=== PATIENT | male | born 1980 | race Caucasian/White ===

== ENCOUNTER 2019-04-29 09:27 | Outpatient (CLI) | payer MEDICARE, OTHER, SELFPAY ==
--- NOTE | ~2019-04-29 | XR_ITS ---
XR abdomen/kub 1V DATE: 04/29/2019 09:58 INDICATION: Abdominal pain. Renal stone. TECHNIQUE: AP projection, 2 views COMPARISON: None FINDINGS: An approximately 4 mm calcification overlies the distal right ureter: Distal right ureteral calcified stone is not excluded. No other urinary tract calcification is evident. Several pelvic calcified phleboliths are noted. The psoas shadows are intact. No visceromegaly is evident. The bowel gas pattern is unremarkable, wit hout evidence of obstruction. IMPRESSION: Possible 4 mm distal right ureteral calcified stone; recommend clinical correlation and p erhaps noncontrast CT abdomen pelvis examination for more definitive confirmation or exclusion of any urinary tract calculus Reviewed, dictated and finalized at [facility]. Reviewed, dictated and finalized at location A. IMPRESSION: Possible 4 mm distal right ureteral calcified stone; recommend clin ical correlation and perhaps noncontrast CT abdomen pelvis examination for more definitive confirmation or exclusion of any urinary tract calculus
== END 2019-04-29 09:28 | disposition home or self-care (01) ==
PROVIDERS: Visit Provider Nurse Practitioner Adult Health
DX: N20.0 Calculus of kidney (principal)
CPT/HCPCS: 74018

== ENCOUNTER 2019-04-29 12:38 | Day surgery (SDC) | payer MEDICARE, OTHER, SELFPAY ==
--- NOTE | ~2019-04-29 | XR_ITS ---
Pain management procedure TECHNIQUE: Fluoroscopy used during ureteral stone extraction performed by [Bernardo Larson MD ] on 04/29/2019. 8 seconds of fluoroscopy time. with 3 images captured. ]The is 0.114DAP for this proc edure was [XXXXDAP#.#[id number] [id number]. ] FINDINGS: Correlate with procedure note. IMPRESSION: Fluoroscopy used during ureteral stone extraction. Reviewed, dictated and finalized at location A.
[2019-04-29] MEDS: LACTATED RINGERS 1,000 ML 30 ML IV CONT (13:20)
[2019-04-29 13:40] VITALS: BP 136/91; PULSE 88; RESP 20; TEMP 36.9; O2SAT 99
--- NOTE | 2019-04-29 14:03 | WPDANESEPPF ---
Anes - Initial Pre Proc Eval Procedure: Operation Date: 04/29/19 15:00 Proposed Procedures p Cystoscopy, Right Ureteroscopy, Right Retrograde Pyelogram, Right Stone Extraction, Possible Right Stent Placement - Bernardo Larson MD s Possible Holmium Laser Procedure - Bernardo Larson MD Date/Time: 04/29/19 14:03 Surgeon: Bernardo Larson MD Pre Op Diagnosis: Rt Distal Ureteral Stone Patient Data Age: 38 Gender: M Height: Weight: 84.4 kg Last Vital Signs Temp 98.5 F 04/29/19 13:40 Pulse 88 04/29/19 13:40 Resp 20 04/29/19 13:40 BP 136/91 H 04/29/19 13:40 Pulse Ox 99 04/29/19 13:40 Allergies Allergy/AdvReac Type Severity Reaction Status Date / Time No Known Allergies Allergy Verified 03/13/19 13:48 Home Medications Medication Instructions Recorded Confirmed Type Valium 03/13/19 History ketorolac 10 mg PO Q6H PRN 5 Days #20 tablet 03/13/19 Rx tamsulosin [Flomax] 0.4 mg PO DAILY #5 cap 03/13/19 Rx sumatriptan succinate 6 mg/0.5 mL See Rx Instructions .ROUTE 03/23/19 Rx subcutaneous pen injector .COMPLEX #12 ml Patient hx anesthesia problems: none Family hx anesthesia problems: none [facility] Past Medical History Medical History (Updated 04/29/19 @ 13:29 by Celso Barajas MD) Kidney stones Migraine Social History Social History (Updated 04/29/19 @ 14:04 by Celso Barajas MD) Smoking status: Current every day smoker Additional smoking assessment comments: vapes at present; trtying to quit Alcohol intake: never Anes - Eval Final PreProcedure Day of Procedure 04/29/19 14:03 Patient weight: normal Heart: regular rate and rhythm Lungs: clear to auscultation Airway: Mallampati scale class II Neurological: alert and oriented Last oral intake: >/= 8 hours ASA classification: II Emergent: no Anesthetic plan: proceed Anesthesia type and monitoring: general LMA and standard monitoring Informed Consent: The patient's anesthetic plan and its attendant risks and benefits were discussed with the patient/family/POA. Questions were solicited and answers provided to the satisfaction of the patient/family/POA.
[2019-04-29] MEDS: ceFAZolin 2 GM/D5W 50 ML 2 GM/50 ML BAG IVPB (14:06)
[2019-04-29] MEDS: IBUPROFEN IV 800 MG/200 ML 800 MG/200 ML BAG 400 MG IVPB (14:06)
[2019-04-29] MEDS: LIDOCAINE HCL 2% GEL UROJET 10 ML PKG MUCOUS MEM (14:28)
--- NOTE | 2019-04-29 14:35 | PM.PROC ---
Procedure Note - Detailed Date of procedure: 04/29/19 Pre-op diagnosis: Rt Distal Ureteral Stone Post-op diagnosis: same Procedure performed: Cystoscopy, right ureteroscopy with stone extraction. Description of procedure: The patient was brought to the operative suite where he is prepped and draped in a routine sterile fashion while in the dorsal lithotomy position after the uneventful induction of a general LMA anesthetic. A 19F rigid cystoscope was placed in the bladder. There are no urethral strictures. His prostatic urethra measures, approximately, 1.5cm with no median lobe enlargement. The bladder mucosa was endoscopically normal without hyperemia or neoplasm. There was a single, orthotopic ureteral orifice bilaterally. A 0.035 glidewire was advanced into the right renal pelvis under fluoroscopy. The distal ureter was dilated with an 8F/10F ureteral dilator. Ureteroscopy was undertaken with a short, tapered, semi-rigid ureteroscope and the stone was extracted with ease using a [1.9F Avani] disposable stone basket. Due to the ease of this manipulation I opted not to place a ureteral stent. The patient's bladder was emptied and was taken to the recovery room having tolerated this procedure well. Anesthesia: GLMA Surgeon: Bernardo Larson MD Estimated blood loss (mL): 0 Drains: No Packing: No Pathology: yes (Right ureteral stone) Complications: No immediate complications Condition: stable Disposition: PACU
[2019-04-29 14:40] VITALS: BP 125/74; PULSE 92; RESP 19; TEMP 36.3; O2SAT 97
[2019-04-29 14:55] VITALS: BP 122/71; PULSE 83; RESP 12; O2SAT 97
[2019-04-29 15:10] VITALS: BP 123/82; PULSE 84; RESP 17; O2SAT 96
[2019-04-29 15:15] VITALS: BP 130/88; PULSE 78; RESP 16
[2019-04-29 15:45] VITALS: BP 123/80; PULSE 79; RESP 16
== END 2019-04-29 16:07 | disposition home or self-care (01) ==
PROVIDERS: PCP Emergency Medicine; Visit Provider Urology
PROC: (CPT 52352; principal; 2019-04-29 15:00)
DX: N20.1 Calculus of ureter (principal); F17.290 Nicotine dependence, other tobacco product, uncomplicated
CPT/HCPCS: 52352; 74018; 82365; 88300; A9270; C1758; C1769; J0690; J1741; J2250; J2704; J3010; J7120; Q9966

== ENCOUNTER 2020-01-23 13:17 | Emergency (ER) | payer MEDICARE, OTHER, SELFPAY ==
--- NOTE | ~2020-01-23 | XR_ITS ---
EXAMINATION: XR chest 1V portable DATE: 01/23/2020 14:12 INDICATION: Chest pain TECHNIQUE: frontal view of the chest was obtained. COMPARISON: Chest radiograph and CT dated 04/10/13 FINDINGS: The lungs are clear with no focal airspace opacities, pulmonary edema, pleural effusion or pneumothor ax. The cardiomediastinal silhouette is within normal limits for AP technique. Visualized bones and s oft tissues are unremarkable. IMPRESSION: 1. Normal chest radiograph. Reviewed, dictated and finalized at location A. INTEGRATION DEVELOPER IMPRESSION: 1. Normal chest radiograph.
[2020-01-23 13:19] VITALS: BP 130/90; PULSE 88; RESP 16; TEMP 36.2; O2SAT 98
--- NOTE | 2020-01-23 13:23 | ECG_ITS ---
Measurements Intervals [place] Rate: 81 P: 14 [place]: 145 QRS: 31 QRSD: 90 T: 37 QT: 361 QTc: 421 Interpretive Statements SINUS RHYTHM BORDERLINE ST-T WAVE ABNORMALITY- ANTERIOR LEADS BASELINE ARTIFACT- I, III, AVR, AVL, AVF, V1 BORDERLINE ECG Electronically Signed On 01-23-2020 14:12:36 PROGRAMS ASSISTANT by Anderson Perez D.O.
[2020-01-23 13:45] LABS: Basophils Absolute Auto 0.1 K/mm3 (0.0-0.1); Basophils Percent Auto 0.7 % (0.2-1.2); Eosinophils Absolute Auto 0.1 K/mm3 (0-0.3); Eosinophils Percent Auto 1.2 % (0-4.4); Hematocrit 46.6 % (42.0-52.0); Immature Granulocyte Absolute 0.06 K/mm3 (0.00-0.031); Immature Granulocyte Percent A 0.8 % (0-0.5); Lymphocytes Absolute Auto 2.86 K/mm3 (0.9-3.2); Lymphocytes Percent Auto 38.5 % (18.3-44.2); Mean Corpuscular HGB Conc 34.3 g/dl (32-36); Mean Corpuscular Hemoglobin 29.9 pg (26-34); Mean Corpuscular Volume 86.9 fl (80-100); Monocytes Absolute Auto 0.5 K/mm3 (0.1-0.6); Monocytes Percent Auto 6.1 % (2.6-8.5); Neutrophils Absolute Auto 3.9 K/mm3 (1.3-6.7); Neutrophils Percent Auto 52.7 % (45.5-73.1); Platelet Count Result 265 k/mm3 (150-375); Red Blood Count 5.36 M/mm3 (4.6-6.20); Red Cell Distribution Width 12.9 % (11.5-14.5); White Blood Count 7.4 K/mm3 (4.5-10.0)
[2020-01-23 14:14] LABS: INR 0.9; Prothrombin Time 12.3 Seconds (11.1-14.7)
[2020-01-23 14:15] LABS: Partial Thromboplastin Time 23.1 SECONDS (22.3-36.8)
[2020-01-23 14:22] LABS: Troponin I < 0.012 ng/mL (0.000-0.034)
[2020-01-23 14:41] LABS: D Dimer 0.27 ug/mL (<0.48)
--- NOTE | 2020-01-23 15:14 | PC.NURSE ---
Mo in lab running BNP now.
[2020-01-23 15:19] LABS: Anion Gap 10 mmol/L (8-16); Blood Urea Nitrogen 10 mg/dL (9-20); Calcium 9.6 mg/dL (8.4-10.2); Carbon Dioxide 23 mmol/L (22-30); Chloride 106 mmol/L (98-107); Estimated CRCL calculation 95 ml/min; Estimated Glomerular Filt Rate > 60; Glucose 96 mg/dL (75-110); Potassium 4.4 mmol/L (3.4-5.0); Sodium 139 mmol/L (137-145)
--- NOTE | 2020-01-23 15:21 | ED.GENADULT ---
HPI - General Adult General Chief complaint: Shortness of Breath/Dyspnea Stated complaint: SHORT OF BREATH Time Seen by Provider: 01/23/20 13:41 Source: RN notes reviewed History of Present Illness HPI narrative: Patient presents emergency department from home for shortness of breath. Patient states he has had shortness of breath for the past 48 hours. States nothing seems to make the symptoms better or worse. States that with that he has a feeling of cold in his midsternal chest that does not radiate. States that he has had no fevers or chills rhinorrhea cough abdominal pain nausea vomiting or any other symptoms Related Data Home Medications Medication Instructions Recorded Confirmed diazepam 5 mg tablet 5 mg PO DAILY PRN tablet 03/23/19 Allergies Allergy/AdvReac Type Severity Reaction Status Date / Time No Known Allergies Allergy Verified 05/19/19 09:53 Review of Systems Review of Systems: Narrative: Gen.: Denies fevers or chills Eyes: Denies eye pain or visual change ENT: Denies congestion Respiratory: See HPI CV: Reports feeling of cold in the chest denies palpitations GI: Denies abdominal pain nausea, emesis or diarrhea denies burning, urgency, frequency or hematuria Musculoskeletal: Denies back pain or muscle pain Neuro: Denies numbness, tingling, weakness or focal weakness Skin: Denies rash Except as documented, all other systems reviewed and negative [facility] Past Medical History Medical History (Updated 01/23/20 @ 17:03 by Lloyd Doss DO) Kidney stones Migraine Social History Social History Smoking status: Current every day smoker Additional smoking assessment comments: vapes at present; trtying to quit Alcohol intake: never Gender identity (if verbalized by the patient): Male Exam Narrative: Exam Narrative: APPEARANCE: No acute distress, nontoxic, resting in bed EYES: EOMI HEENT: Normocephalic, atraumatic, OMM RESPIRATORY: No respiratory distress Clear to auscultation bilaterally with no rhonchi wheezing or rales. CARDIOVASCULAR: Regular rate and rhythm without murmurs rubs or gallops. ABDOMINAL: Soft, nontender, nondistended, no rebound or guarding MUSCULOSKELETAl: Moves all extremities. No clubbing, cyanosis or edema. NEURO: Awake and alert. Following commands, speech normal, no focal deficits SKIN:: Warm, dry. No rashes lesions or abrasions PSYCHIATRIC: Normal affect/mood, Course Course Emergency Course: Called discussed with Dr. Benedict presentation and work-up. Reviewed EKGs with Dr. Benedict this time recommends repeat troponin and if negative may discharge follow-up as an outpatient Discussed with patient results of workup and diagnosis. Discussed need for follow-up with primary care, proper use of medication, and reasons to return to the emergency department. Patient understands and agrees to current treatment plan Vital Signs Vital signs: Vital Signs Temperature 97.2 F L 01/23/20 13:19 Pulse Rate 88 01/23/20 13:19 Respiratory Rate 16 01/23/20 13:19 Blood Pressure 130/90 01/23/20 13:19 Pulse Oximetry 98 01/23/20 13:19 Temperature 97.2 F L 01/23/20 13:19 Pulse Rate 88 01/23/20 13:19 Respiratory Rate 16 01/23/20 13:19 Blood Pressure 130/90 01/23/20 13:19 Pulse Oximetry 98 01/23/20 13:19 Medical Decision Making MDM Narrative Medical decision making narrative: Patient's EKGs and labs are without significant high risk changes. Cardiac risk factors reviewed. Patient is felt likely low risk for ACS and reasonable for further risk stratification testing as an outpatient. Pain was not sudden or maximal in onset without tearing or ripping quality. No other signs of symptoms suggest aortic dissection. A low-risk Wells criteria is noted, PE is felt to be unlikely. No pneumonia seen on evaluation today. Patient is felt to be a reasonable candidate for continued evaluation as an outpa
[2020-01-23] MEDS: ALBUTEROL SULFATE (*SP) AEROSOL 1 PUFF 2 PUFF INHALATION (15:41)
[2020-01-23 16:54] LABS: Troponin I < 0.012 ng/mL (0.000-0.034)
[2020-01-23 17:30] VITALS: BP 154/78; PULSE 72; RESP 16; O2SAT 99
[2020-01-24 18:52] LABS: SARS-CoV-2 RNA PCR Negative
== END 2020-01-23 17:31 | disposition home or self-care (01) ==
PROVIDERS: Emergency Provider Emergency Medicine; PCP Emergency Medicine
DX: R06.00 Dyspnea, unspecified (principal); Z20.828 Contact with and (suspected) exposure to other viral communicable diseases; F17.200 Nicotine dependence, unspecified, uncomplicated
CPT/HCPCS: 36415; 71045; 80048; 84484; 85025; 85380; 85610; 85730; 87635; 93005; 94640; 99284; A9270; C9803; U0003

== ENCOUNTER 2020-08-15 10:42 | Outpatient (CLI) | payer MEDICARE, OTHER, SELFPAY ==
--- NOTE | ~2020-08-15 | XR_ITS ---
EXAMINATION: XR chest 2V DATE: 08/15/2020 10:58 INDICATION: Chest tightness and shortness of breath TECHNIQUE: PA and lateral views of the chest are obtained. COMPARISON: 01/23/2020 FINDINGS: The lungs are free of acute opacities. There is no pleural effusion or pneumothorax. The ca rdiomediastinal silhouette is normal. The visualized bones and soft tissues are unremarkable. IMPRESSION: 1. No acute cardiopulmonary abnormality. Reviewed, dictated and finalized at location B.
== END 2020-08-15 10:43 | disposition home or self-care (01) ==
PROVIDERS: PCP Emergency Medicine; Visit Provider Emergency Medicine
DX: R07.89 Other chest pain (principal); R06.02 Shortness of breath
CPT/HCPCS: 71046

== ENCOUNTER 2020-08-22 14:50 | Outpatient (CLI) | payer MEDICARE, OTHER, SELFPAY ==
--- NOTE | ~2020-08-22 | CT_ITS ---
EXAMINATION: CT abdomen pelvis wo con DATE: 08/22/2020 15:15 INDICATION: Right abdominal and flank pain. Generalized abdominal pain. TECHNIQUE: Computed tomography (CT) of the abdomen and pelvis was performed without intravenous contr ast. Automated exposure control and iterative reconstruction technique were employed. Exam dose: 642 .22 mGy-cm total exam DLP. COMPARISON: 03/13/[address] abdomen pelvis FINDINGS: The lung bases are clear. Normal heart size. No pericardial or pleural effusion. Areas of low-attenuation within the gallbladder lumen suggest cholelithiasis. The gallbladder wall do es not appear unusually thickened and no pericholecystic fluid or fat stranding is evident. Consider gallbladder ultrasound examination. No bile duct or pancreatic duct dilatation. No hepatic or pancreatic space-occupying mass lesion is detected. Normal splenic size. Normal morphology of the adrenal glands. No renal mass lesion is detected. Pinpoint nonobstructing upper pole right renal calculus. No urinary tract calculus or hydroureteronep hrosis is noted otherwise. Normal caliber of the abdominal aorta. No intraperitoneal or retroperitoneal or pelvic mass lesion or adenopathy or ascites. The urinary bladder and prostate gland are unremarkable. No bowel obstruction, bowel wall thickening, pneumatosis or intraperitoneal free air. Technique is not visualized but there is no evidence of inflammatory change in the pericecal area IMPRESSION: Pinpoint nonobstructing upper pole right renal calculus; no obstructing urinary tract ca lculus or hydroureteronephrosis Suggestion of cholelithiasis; consider gallbladder ultrasound correlation. Reviewed, dictated and finalized at Location [facility]. Reviewed, dictated and finalized at location A. IMPRESSION: Pinpoint nonobstructing upper pole right renal calculus; no obstru cting urinary tract calculus or hydroureteronephrosis Suggestion of cholelithiasis; consider gallbladder ultrasound correlation.
== END 2020-08-22 14:51 | disposition home or self-care (01) ==
LOC: ANHIMG 14:54
PROVIDERS: PCP Emergency Medicine; Visit Provider Emergency Medicine
DX: R10.84 Generalized abdominal pain (principal); N20.0 Calculus of kidney
CPT/HCPCS: 74176